=== PATIENT | female | born 1950 | race Caucasian/White ===

== ENCOUNTER 2018-08-21 10:56 | Day surgery (SDC) | payer MEDICARE, OTHER ==
[~2018-08-21] VITALS: Ht 170.2 cm; Wt 96.7 kg
[2018-08-21 12:10] VITALS: Ht 170.2 cm; Wt 96.7 kg
[2018-08-21] MEDS ORDERED: PROPOFOL 40 ML ONE (12:29)
[2018-08-21 12:30] VITALS: BP 129/64; PULSE 59; RESP 30
[2018-08-21] MEDS ORDERED: LIDOCAINE 2% (SDV) 5 ML INJ ONE (12:30)
--- NOTE | 2018-08-21 12:41 | PREAC ---
Date/Time of Note Date/Time of Note DATE: 08/21/18 TIME: 12:39 Anesthesia Eval and Record Evaluation Time Pre-Procedure Interview DATE: 08/21/18 TIME: 12:39 Age 68 Sex female NPO: 8 hrs Preoperative diagnosis Dysphagia Planned procedure EGD Past Medical History Past Medical History: Includes Cardio: Dyslipidemia Endo: Diabetes Pulm: Asthma Musculoskeletal: Osteoarthritis GI: GERD Surgery & Anesthesia Issues No known issue Meds Anticoagulation: No Beta Poncho within 24 hr: No Reason Beta Poncho not given: Pt. not on B-Poncho Meds reviewed: Yes Allergies Allergies Reviewed: Yes Labs/Studies Labs Reviewed: Reviewed by anesthesiologist test: N/A Pre-procedure Exam Airway: Adequate mouth opening, Adequate thyromental dist Mallampati: Mallampati II Teeth: Normal Lung: Normal Heart: Normal ASA Physical Status ASA physical status: 3 Emergency: None Planned Anesthetic General/MAC: MAC Pre-operative Attestations Prior to commencing anesthesia and surgery, the patient was re-evaluated, there was verification of: *The patient's identity *The results of appropriate recent lab work and preoperative vital signs *The above evaluation not changing prior to induction *Anesthetic plan, risk benefits, alternative and complications discussed with patient/family; questions answered; patient/family understands, accepts and wishes to proceed. JOSE STEPHENS Aug 21, 2018 12:41
[2018-08-21] MEDS ORDERED: ATORVASTATIN (12:50)
[2018-08-21] MEDS ORDERED: GABAPENTIN (12:50)
[2018-08-21] MEDS ORDERED: GLIPIZIDE (12:50)
[2018-08-21] MEDS ORDERED: ASPIRIN (12:50)
[2018-08-21] MEDS ORDERED: VENTOLIN INHALER (12:50)
[2018-08-21] MEDS ORDERED: METFORMIN (12:50)
[2018-08-21] MEDS ORDERED: ALBUTEROL 0.083% (NEB) 2.5 MG/3 ML AMP HHN PRN (13:00)
[2018-08-21] MEDS ORDERED: ACETAMINOPHEN 500 MG TAB PO PRN (13:00)
[2018-08-21] MEDS ORDERED: ONDANSETRON 4 MG INJ IV PRN (13:00)
[2018-08-21] MEDS ORDERED: FENTAnyl 50 MCG/ML VIAL IV PRN (13:00)
--- NOTE | 2018-08-21 13:48 | PAC ---
Date/Time of Note Date/Time of Note DATE: 08/21/18 TIME: 13:47 Post-Anesthesia Notes Post-Anesthesia Note Last documented vital signs Vital Signs Date Temp Pulse Resp B/P (MAP) Pulse Ox O2 O2 Flow FiO2 Time Delivery Rate 08/21/18 98.9 99 59 71 30 17 129/64 96 99 Room 12:30 133 (85) 144/ Air face 6 69 mask 6L Activity: WNL Respiratory function: WNL Cardiovascular function: WNL Mental status: Baseline Pain reasonably controlled: Yes Hydration appropriate: Yes Nausea/Vomiting absent: Yes JOSE STEPHENS Aug 21, 2018 13:48
[2018-08-21 14:10] VITALS: BP 115/56; PULSE 64; RESP 18
== END 2018-08-21 14:54 | disposition home or self-care (01) ==
LOC: GIL 10:56
PROVIDERS: ATTEND Internal Medicine Gastroenterology
DX: K29.50 Unspecified chronic gastritis without bleeding (principal); E78.5 Hyperlipidemia, unspecified; J45.909 Unspecified asthma, uncomplicated; E11.9 Type 2 diabetes mellitus without complications
CPT/HCPCS: 82962; 88305; 88312